=== PATIENT | male | born 1990 | race Caucasian/White ===

== ENCOUNTER 2022-06-21 11:26 | Emergency (ER) | payer SELFPAY ==
[~2022-06-21] VITALS: Ht 175.3 cm; Wt 77.3 kg
[2022-06-21 11:28] VITALS: BP 137/83
== END 2022-06-21 14:45 | disposition left against medical advice (07) ==
LOC: M ED 11:26
DX: Z53.21 Procedure and treatment not carried out due to patient leaving prior to being seen by health care provider (principal)

== ENCOUNTER 2022-08-20 13:33 | Emergency (ER) | payer OTHER, SELFPAY ==
[~2022-08-20] VITALS: Ht 172.7 cm; Wt 77.9 kg
[2022-08-20] MEDS ORDERED: KETOROLAC 30 MG/ML 1ML VIAL IV ONE (16:20)
[2022-08-20] MEDS ORDERED: LIDOCAINE 5% (LIDODERM) PATCH TD ONE (16:20)
[2022-08-20] MEDS ORDERED: NS 1,000 ML IV ONE (16:20)
[2022-08-20] MEDS ORDERED: METOCLOPRAMIDE INJ 10MG/2ML VIAL IV ONE (16:20)
[2022-08-20 17:17] LABS: BASO % 0.3 % (0.0-1.0); EOS % 0.3 % (0.0-3.0); HEMATOCRIT 45.6 % (42.0-52.0); HEMOGLOBIN 15.6 g/dl (13.5-17.5); LYMPH # 0.6 10^3/uL (1.5-5.0); LYMPH % 9.2 % (24.0-44.0); MEAN CORPUSCULAR HGB CONC 34.2 g/dl (32.0-36.5); MEAN CORPUSCULAR VOLUME 84.8 fl (80.0-96.0); MONO # 0.9 10^3/uL (0.0-0.8); MONO % 14.3 % (2.0-8.0); NEUTROPHILS # 4.8 10^3/uL (1.5-8.5); NEUTROPHILS % 75.6 % (36.0-66.0); PLATELET COUNT, AUTOMATED 147 10^3/uL (150-450); RED BLOOD COUNT 5.38 10^6/uL (4.30-6.10); WHITE BLOOD COUNT 6.3 10^3/uL (4.0-10.0)
[2022-08-20 17:30] LABS: CK-MB VALUE MASS < 1.0 NG/ML (<3.6)
[2022-08-20 17:32] LABS: CPK CREATINE PHOSPHOKINASE 81 U/L (46-171); MB/CK RELATIVE INDEX 1.23 (< OR =4)
[2022-08-20] MEDS ORDERED: ONDA4TAB6 PO (19:16)
[2022-08-20] MEDS ORDERED: ASPE4PAD TOP (19:17)
[2022-08-20 19:29] VITALS: BP 115/70
== END 2022-08-20 19:35 | disposition home or self-care (01) ==
LOC: M ED 13:33
DX: R50.9 Fever, unspecified (principal); R06.00 Dyspnea, unspecified; M54.50 Low back pain, unspecified; R51.9 Headache, unspecified; Z79.83 Long term (current) use of bisphosphonates; Z79.899 Other long term (current) drug therapy
CPT/HCPCS: 71046; 80047; 82550; 82553; 83605; 84484; 85025; 85379; 86618; 87040; 87428; 93005; 96374; 96375; 99284; J1100; J1885; J2765

== ENCOUNTER → 2023-04-12 | Outpatient (REF) | payer OTHER ==
[~2023-04-12] MED LIST: ASPE4PAD TOP; ONDA4TAB6 PO
[2023-04-12 14:41] LABS: SEMEN APPEARANCE OPAQUE (OPAQUE); SEMEN VISCOSITY LIQUID (LIQUID); SEMEN VOLUME 3.8 ml (2.0-5.0); WBC CONCENTRATION <=1 M/ml (<=1 M/ml)
[2023-04-12 14:42] LABS: SPERM CONCENTRATION 53.8 M/ml (>=15.0)
== END ==
LOC: M LAB REF 14:14
PROVIDERS: ATTEND Emergency Medicine
DX: Z31.41 Encounter for fertility testing (principal)

== ENCOUNTER → 2023-07-13 | Outpatient (CLI) | payer OTHER | LOC: M RAD 13:55 | PROVIDERS: ATTEND Emergency Medicine | DX: M25.531 Pain in right wrist (principal) ==